=== PATIENT | female | born 1985 | race Asian ===

== ENCOUNTER 2016-05-30 11:55 | Emergency (ER) | payer OTHER ==
[2016-05-30] MEDS ORDERED: ONDANSETRON 4 MG/2 ML VIAL IVP STA (12:16)
[2016-05-30] MEDS ORDERED: SODIUM CHLORIDE 0.9% 1,000 ML IV ONE (12:16)
[2016-05-30] MEDS ORDERED: ONDANSETRON 4 MG/2 ML VIAL ONE (12:39)
== END 2016-05-30 14:33 | disposition home or self-care (01) ==
DX: R11.2 Nausea with vomiting, unspecified (principal); R19.7 Diarrhea, unspecified; R10.11 Right upper quadrant pain; J45.909 Unspecified asthma, uncomplicated

== ENCOUNTER 2017-05-22 22:16 | Emergency (ER) | payer OTHER ==
[2017-05-22 22:22] VITALS: BP 152/90
--- NOTE | 2017-05-22 22:37 | ED Physician Documentation ---
PD HPI HEAD INJURY - Stated complaint Stated Complaint: HIT HEAD ON HEADBOARD - Chief complaint Chief Complaint: Neuro - History obtained from History obtained from: Patient, Family - History of Present Illness Mechanism of head injury: Fell Where head injury occurred: Home Timing - onset: Yesterday Pain level max: 8 Pain level now: 5 Location of injury: Front Quality of pain: Throbbing, Aching, Dull Associated symptoms: Nausea / vomiting (x2 today). No: LOC, AMS, Amnesia, Neck pain, Paresthesias, Seizures Symptoms improve with: Rest Symptoms worsen with: Movement. No: Palpation, Light Contributing factors: No: Anticoagulated, Intoxicated Similar symptoms before: Has not had sx before Recently seen: Not recently seen - Additional information Additional information: Patient was disassembling a bed to sell it yesterday, tripped going down the stairs from the bed and struck her head on a wooden headboard. No LOC, but has a continued headache today and emesis x 2 today at work. Review of Systems Constitutional: denies: Fever, Chills Nose: denies: Rhinorrhea / runny nose, Congestion Throat: denies: Sore throat Cardiac: denies: Chest pain / pressure Respiratory: denies: Cough, Wheezing Skin: denies: Rash Musculoskeletal: denies: Neck pain, Back pain Neurologic: denies: Focal weakness, Numbness PD PAST MEDICAL HISTORY - Past Medical History Past Medical History: Yes Respiratory: Asthma Endocrine/Autoimmune: Type 2 diabetes - Past Surgical History Past Surgical History: No - Present Medications Home Medications: Ambulatory Orders Medication Instructions Recorded Confirmed Albuterol 1 puffs PO PRN 05/30/16 Ondansetron Odt [Zofran] 4 mg TL Q6H PRN #10 tablet 05/22/17 metFORMIN [Glucophage] 05/22/17 - Allergies Allergies/Adverse Reactions: Allergies Allergy/AdvReac Type Severity Reaction Status Date / Time No Known Drug Allergies Allergy Verified 05/22/17 22:22 - Social History Does the pt smoke?: No Smoking Status: Never smoker Does the pt drink ETOH?: No Does the pt have substance abuse?: No - POLST Patient has POLST: No PD ED PE NORMAL - Vitals Vital signs reviewed: Yes - General General: Alert and oriented X 3, No acute distress - HEENT HEENT: Atraumatic, PERRL, EOMI, Ears normal, Moist mucous membranes, Pharynx benign - Neck Neck: Supple, no meningeal sign, No bony TTP - Cardiac Cardiac: RRR - Respiratory Respiratory: No respiratory distress, Clear bilaterally - Abdomen Abdomen: Soft, Non tender, Non distended - Back Back: No spinal TTP - Derm Derm: Warm and dry, No rash - Extremities Extremities: Normal ROM s pain - Neuro Neuro: Alert and oriented X 3, annual giving manager 2-12 intact, No motor deficit, No sensory deficit, Normal speech Eye Opening: Spontaneous Motor: Obeys Commands Verbal: Oriented GCS Score: 15 - Psych Psych: Normal mood, Normal affect Results - Vitals Vitals: Vital Signs - 24 hr 05/22/17 22:18 Temperature 36.4 C L Heart Rate 80 Respiratory 18 Rate Blood Pressure 152/90 H O2 Saturation 100 Oxygen O2 Source Room air - Labs Labs: Laboratory Tests 05/22/17 22:55 Ur Specific Mason 1.025 Urine HCG, Qual NEGATIVE - Rads (name of study) head CT Radiology: Prelim report reviewed, EMP read contemporaneously, See rad report ( no acute intracranial abnormality. ) PD MEDICAL DECISION MAKING - ED course Complexity details: reviewed results, re-evaluated patient, considered differential, d/w patient, d/w family ED course: Patient is a 32-year-old female who presents to the emergency department after striking her head on a wooden headboard while falling last night. Vomited 2 today. Appears to have a mild concussion. Negative head CT. Will prescribe Zofran for home and continue Motrin and Tylenol as needed for pain. She is with her and head injury instructions were given at bedside. Patient counseled regarding signs and symptoms for which I believe and urgent re- evaluation would be necessary. Patient with good understanding of and agreement to plan and is comfortable going home at this time This document was made in part using voice recognition software. While efforts are made to proofread this document, sound alike and grammatical errors may occur. Departure - Departure Disposition: 01 Home, Self Care Clinical Impression: Head injury, closed Qualifiers: Encounter type: initial encounter Qualified Code(s): S09.90XA - Unspecified injury of head, initial encounter Condition: Good Instructions: ED Head Injury Closed Follow-Up: Zenaida Thompson MD [Primary Care Provider] - Within 1 week (if not better) Prescriptions: Ondansetron Odt [Zofran] 4 mg TL Q6H PRN #10 tablet PRN Reason: Nausea / Vomiting Comments: You can use Motrin or Tylenol as needed for pain at home. Return if worsening. Use the Zofran for any nausea or vomiting. Your head CT is normal tonight. Forms: Activity restrictions
[2017-05-22] MEDS ORDERED: ACETAMINOPHEN 325 MG TABLET PO STA (23:04)
[2017-05-22] MEDS ORDERED: ONDANSETRON ODT 4 MG TABLET TL STA (23:04)
[2017-05-22 23:15] LABS: HCG UR QUAL NEGATIVE
--- NOTE | 2017-05-22 23:16 | CT Report ---
EXAM: CT HEAD EXAM DATE: 05/22/2017 10:56 PM. CLINICAL HISTORY: Head injury last night, vomiting today. COMPARISON: None. TECHNIQUE: Multiaxial CT images were obtained from the foramen magnum to the vertex. Reformats: Coron al. IV contrast: None. In accordance with CT protocol optimization, one or more of the following dose reduction techniques w ere utilized for this exam: automated exposure control, adjustment of mA and/or KV based on patient s ize, or use of iterative reconstructive technique. FINDINGS: Parenchyma: No intraparenchymal hemorrhage. No evidence of mass, midline shift, or CT findings of inf arction. Rondon-white differentiation is distinct. Extraaxial Spaces: Normal for age. No subdural or epidural collections identified. Ventricles: Normal in size and position. Sinuses and Orbits: Imaged paranasal sinuses, orbits, and mastoids show no significant abnormality. Bones: No evidence of fracture or calvarial defect. Other: None. IMPRESSION: No acute or focal intracranial abnormality. [facility] Referring Provider Line: [phone] SITE ID: [id number]
== END 2017-05-22 23:21 | disposition home or self-care (01) ==
LOC: ED 22:16
DX: S09.90XA Unspecified injury of head, initial encounter (principal); W10.9XXA Fall (on) (from) unspecified stairs and steps, initial encounter; E11.9 Type 2 diabetes mellitus without complications; Z79.84 Long term (current) use of oral hypoglycemic drugs
CPT/HCPCS: 70450; 81025; 99283; A9270; Q0162